=== PATIENT | female | born 1985 | race African-American/Black ===

== ENCOUNTER 2018-12-03 12:18 | Emergency (ER) | payer MEDICAID ==
[~2018-12-03] VITALS: Ht 162.6 cm; Wt 59.0 kg
[2018-12-03] MEDS ORDERED: NKM (12:20)
[2018-12-03 12:50] VITALS: BP 142/95
[2018-12-03 12:52] LABS: BASOPHILS % (AUTO) 1.5 % (0.0-2.0); EOSINOPHILS % (AUTO) 1.7 % (0.0-3.0); HEMATOCRIT 38.8 % (37.0-47.0); HEMOGLOBIN 12.7 G/DL (12.0-16.0); LYMPHOCYTES % (AUTO) 42.5 % (20.0-45.0); MEAN CORPUSCULAR VOLUME 86 FL (80-99); MONOCYTES % (AUTO) 12.9 % (1.0-10.0); NEUTROPHILS % (AUTO) 41.3 % (45.0-75.0); PLATELET COUNT 353 K/UL (150-450); RED CELL DISTRIBUTION WIDTH 12.4 % (11.6-14.8); WHITE BLOOD COUNT 4.8 K/UL (4.8-10.8)
[2018-12-03 13:00] LABS: ANION GAP 11 mmol/L (5-15); BLOOD UREA NITROGEN 22 mg/dL (7-18); CALCIUM 9.2 MG/DL (8.5-10.1); CARBON DIOXIDE 24 MMOL/L (21-32); CHLORIDE 104 MMOL/L (98-107); CREATININE 1.1 MG/DL (0.55-1.30); SODIUM 139 MMOL/L (136-145)
[2018-12-03 13:15] LABS: ALANINE AMINOTRANSFERASE 22 U/L (12-78); ALBUMIN 4.7 G/DL (3.4-5.0); ALBUMIN/GLOBULIN RATIO 1.4 (1.0-2.7); ALKALINE PHOSPHATASE 80 U/L (46-116); ASPARTATE AMINO TRANSFERASE 28 U/L (15-37); BILIRUBIN,TOTAL 1.5 MG/DL (0.2-1.0)
[2018-12-03 13:18] LABS: BILIRUBIN,DIRECT 0.3 MG/DL (0.0-0.3)
--- NOTE | 2018-12-03 14:54 | Diagnostic Imaging Report ---
CLINICAL INDICATION:Pain TECHNIQUE: No oral contrast, per patient request. No IV contrast, per referring physician request. Spiral acquisitions obtained through the chest, abdomen, and pelvis. Multiplanar reconstructions were generated. Total dose length product 949.07 mGycm. CTDIvol(s) 13.88 mGy. Radiation dose was minimized using automated exposure control COMPARISON: none FINDINGS Chest: The lungs are clear. No infiltrates, effusions, nodules, or masses. Minimal linear scarring or atelectasis is seen in the lung bases bilaterally. The heart size is normal. No pericardial effusion. No mediastinal or hilar mass or adenopathy. The included portion of the thyroid is unremarkable. No axillary or chest wall mass or adenopathy. The bones are unremarkable. Esophagus is unremarkable. Abdomen pelvis: Lack of enteric contrast limits assessment of the GI tract. There is some motion artifact in the pelvis which also limits evaluation. The appendix is not definitely visualized, but no findings to suggest acute appendicitis are evident. Moderate retained stool is seen in the colon. No definite small bowel distention. No definite free or loculated intraperitoneal gas or fluid. No definite evidence of diverticulosis or diverticulitis. Lack of IV contrast limits assessment of the solid organs. The liver, gallbladder,, bile ducts, pancreas, spleen, adrenals, kidneys are all unremarkable. No retroperitoneal or mesenteric mass or adenopathy. No pelvic mass or adenopathy. Uterus is unremarkable. There is a 4 cm left ovarian cyst. The bones are unremarkable. IMPRESSION: Limited exam, as described, due to lack of oral enteric contrast administration, motion artifact obscure an structures in the pelvis No definite acute or significant abnormality 4 cm left ovarian cyst, presumably benign The CT scanner at [facility] is accredited by the [employer] and the scans are performed using protocols designed to limit radiation exposure to as low as reasonably achievable to attain images of sufficient resolution adequate for diagnostic evaluation.
[2018-12-03] MEDS ORDERED: POTASSIUM CHLO20 ME3 PO (15:10)
[2018-12-03] MEDS ORDERED: ZOFRAN4 M1 ORAL (15:10)
--- NOTE | 2018-12-03 15:18 | Emergency Room Report ---
History of Present Illness General Chief Complaint: Behavioral Complaint Source: EMS Present Illness HPI 33-year-old female with unknown past medical history brought in by the paramedics off the street after she was complaining of something is wrong. Patient is twitching and moving around and slow to respond to questions. Patient has an unknown psychiatric disorder however denies taking any medication or using any drugs. Patient complains of minimal abdominal pain seen she feels like something stuck and she is burping a lot. However she is not a good historian and does not answer to any of my following questions. Patient denies being allergic to any medication. Complains of hunger, and dehydration. Denies chest pain, shortness of breath, palpitation, nausea vomiting, urinary symptoms, SI and HI. Denies fever chills. Patient does not rate her pain nor answer the question whether it radiating. Allergies: Coded Allergies: No Known Allergies (Unverified , 12/03/18) Patient History Past Medical History: see triage record Past Surgical History: unable to obtain Pertinent Family History: none Last Menstrual Period: unknown Now: No Immunizations: other Reviewed Nursing Documentation: PMH: Agreed; PSxH: Agreed Nursing Documentation-PMH Past Medical History: No Stated History Review of Systems All Other Systems: negative except mentioned in HPI Physical Exam Vital Signs Date Time Temp Pulse Resp B/P (MAP) Pulse Ox O2 Delivery O2 Flow Rate FiO2 12/03/18 12:18 97.5 80 18 151/97 (115) 98 Room Air Sp02 EP Interpretation: reviewed, normal General Appearance: alert, mild distress, thin, other - Disheveled Head: normocephalic Eyes: bilateral eye normal inspection, bilateral eye PERRL ENT: normal ENT inspection, normal pharynx Neck: normal inspection, full range of motion, supple Respiratory: normal inspection, chest non-tender, normal breath sounds, no wheezing Cardiovascular #1: normal inspection, regular rate, rhythm, no murmur Gastrointestinal: normal inspection, non tender, soft, no organomegaly, no peritonitis, no bruit Rectal: deferred Genitourinary: no CVA tenderness Musculoskeletal: normal inspection, back normal, digits/nails normal Neurologic: normal inspection, alert, oriented x3, responsive, disc ruler operator III-XII nml as tested Psychiatric: normal inspection, judgement/insight normal Skin: normal inspection, normal color, no rash, warm/dry Lymphatic: normal inspection, no adenopathy Medical Decision Making PA Attestation All my diagnosis and treatment plans were reviewed ad discussed with my supervising physician Dr. Banerjee Homeless Attestation the [facility] physician Dr Ware has assessed and agrees that patient is medically stable for discharge to an outpatient disposition Diagnostic Impression: Primary Impression: Ovarian cyst Additional Impressions: Low blood potassium Dehydration Amphetamine abuse ER Course 33-year-old female with unknown past medical history brought in by the paramedics off the street after she was complaining of something is wrong. Patient is twitching and moving around and slow to respond to questions. Patient has an unknown psychiatric disorder however denies taking any medication or using any drugs. Patient complains of minimal abdominal pain seen she feels like something stuck and she is burping a lot. However she is not a good historian and does not answer to any of my following questions. Patient denies being allergic to any medication. Complains of hunger, and dehydration. Denies chest pain, shortness of breath, palpitation, nausea vomiting, urinary symptoms, SI and HI. Denies fever chills. Patient does not rate her pain nor answer the question whether it radiating. Ddx considered but are not limited to: appendicitis, cholycisitis, gastritis, gasthroentritis, UTI, pylonephritis, SBO, diverticulitis, influenza with GI manifestation, [place], complication with , ovarian cyst, schizophrenia, generalized anxiety disorder, substance abuse Vital signs: are WNL, pt. is afebrile H&PE are most consistent with: Ovarian cyst, dehydration and hypokalemia, amphethamine abuse ORDERS: abdominal CT, EKG, CBC, CMP, UA, urine test, NS bolus, potassium chloride, Zofran ED INTERVENTIONS: NS bolus, potassium chloride DISCHARGE: At this time pt. is stable for d/c to home. Will provide printed patient care instructions, and any necessary prescriptions. Care plan and follow up instructions have been discussed with the patient prior to discharge. Last Vital Signs Date Time Temp Pulse Resp B/P (MAP) Pulse Ox O2 Delivery O2 Flow Rate FiO2 12/03/18 12:50 97.5 82 18 142/95 98 Room Air Disposition: HOME, SELF-CARE Condition: Stable Scripts Ondansetron (Zofran) 4 Mg Tablet 4 MG ORAL Q6H PRN for Nausea & Vomiting, #10 TAB Prov: Sahelimoghavami,Nahal PA 12/03/18 Potassium Chloride (Potassium Chloride) 20 Meq Tablet.er 20 MEQ PO DAILY for 7 Days, #7 TAB Prov: Suzy Pretty 12/03/18 Referrals: NOT CHOSEN IPA/,REFERRING (PCP) Patient Instructions: Dehydration, Adult, [id number], Hypokalemia, Ovarian Cyst, Vaix-[id number], Stimulant Use Disorder-Amphetamines Additional Instructions: Follow-up with primary care provider regarding your ovarian cyst and referral to [facility] Suzy Pretty Dec 03, 2018 15:18
[2018-12-03 15:36] LABS: APPEARANCE,URINE CLEAR; BILIRUBIN, URINE NEGATIVE (NEGATIVE); GLUCOSE, URINE (UA) NEGATIVE (NEGATIVE); KETONES,URINE NEGATIVE (NEGATIVE); LEUKOCYTE ESTERASE ,URINE 1+ (NEGATIVE); NITRITE,URINE NEGATIVE (NEGATIVE); PH,URINE 5 (4.5-8.0); PROTEIN,URINE 2+ (NEGATIVE); UROBILINOGEN,URINE NORMAL MG/DL (0.0-1.0)
[2018-12-03 15:43] LABS: COLOR,URINE YELLOW
[2018-12-03 17:55] VITALS: BP 128/92
[2018-12-03 18:00] VITALS: BP 142/95
== END 2018-12-03 18:00 | disposition home or self-care (01) ==
LOC: EDBD 12:18 → EMR 13:25
DX: N83.202 Unspecified ovarian cyst, left side (principal); E86.0 Dehydration; F15.10 Other stimulant abuse, uncomplicated; R79.89 Other specified abnormal findings of blood chemistry
CPT/HCPCS: 36415; 71250; 74176; 80053; 80307; 80329; 81003; 82248; 84703; 85025; 93005; 96365; 99284; J3480